=== PATIENT | male | born 2000 | race Caucasian/White ===

== ENCOUNTER 2019-11-19 18:37 | Observation (INO) | payer OTHER ==
[~2019-11-19] VITALS: Ht 177.8 cm; Wt 99.3 kg
[2019-11-19] MEDS ORDERED: IBUP200C25 PO (18:57)
[2019-11-19] MEDS ORDERED: NAPROXEN 250 MG TAB PO ONE (20:30)
[2019-11-19] MEDS ORDERED: LIDOCAINE 4% CREAM 5GM (LMX4) TOP ONE (20:30)
[2019-11-19 21:19] LABS: BASO # 0.1 10^3/uL (0.0-0.2); BASO % 0.8 % (0.0-1.0); EOS # 0.2 10^3/uL (0.0-0.5); EOS % 2.1 % (0.0-3.0); HEMATOCRIT 45.8 % (42.0-52.0); HEMOGLOBIN 15.4 g/dl (13.5-17.5); LYMPH # 3.4 10^3/uL (1.5-5.0); LYMPH % 32.1 % (24.0-44.0); MEAN CORPUSCULAR HEMOGLOBIN 28.2 pg (27.0-33.0); MEAN CORPUSCULAR HGB CONC 33.6 g/dl (32.0-36.5); MEAN CORPUSCULAR VOLUME 83.9 fl (80.0-96.0); MONO # 1.1 10^3/uL (0.0-0.8); MONO % 10.1 % (0.0-5.0); NEUTROPHILS # 5.8 10^3/uL (1.5-8.5); NEUTROPHILS % 54.6 % (36.0-66.0); PLATELET COUNT, AUTOMATED 292 10^3/uL (150-450); RED BLOOD COUNT 5.46 10^6/uL (4.30-6.10); WHITE BLOOD COUNT 10.5 10^3/uL (4.0-10.0)
[2019-11-19 21:25] LABS: APPEARANCE, URINE HAZY (CLEAR); BACTERIA, URINE AUTO NEGATIVE (NEGATIVE); BILIRUBIN, URINE AUTO NEGATIVE (NEGATIVE); BLOOD, URINE BLOOD NEGATIVE (NEGATIVE); COLOR, URINE YELLOW (YELLOW); GLUCOSE, URINE (UA) AUTO NEGATIVE (NEGATIVE); KETONE, URINE AUTO NEGATIVE (NEGATIVE); LEUKOCYTE ESTERASE, URINE AUTO NEGATIVE (NEGATIVE); MUCUS, URINE SMALL (NEGATIVE); NITRITE, URINE AUTO NEGATIVE (NEGATIVE); PROTEIN, URINE AUTO NEGATIVE (NEGATIVE); RBC, URINE AUTO 0 /HPF (0-3); SPECIFIC GRAVITY URINE AUTO 1.033 (1.002-1.035); SQUAMOUS EPITHELIAL CELL UR AU 0 /HPF (0-6); UROBILINOGEN, URINE AUTO 0.2 mg/dL (0.0-2.0); WBC, URINE AUTO 0 /HPF (0-3)
--- NOTE | 2019-11-19 21:29 | REPVR ---
PROCEDURE INFORMATION: Exam: US Duplex Right Lower Extremity Veins, Limited Exam date and time: 11/19/2019 9:23 PM Age: 18 years old Clinical indication: Pain; Swelling (edema) of limb; Lower extremity, right; Leg, lower; Additional info: Right calf pain, swelling TECHNIQUE: Imaging protocol: Real-time Duplex ultrasound of the Right Lower Extremity with 2-D patino scale, color Doppler flow and spectral waveform analysis with image documentation. Limited exam was focused on the right lower extremity veins. COMPARISON: No relevant prior studies available. FINDINGS: Right deep veins: Unremarkable. The common femoral, femoral, proximal profunda femoral and popliteal veins are patent without thrombus. The posterior tibial trunk is normal and patent. Normal Doppler waveforms. Normal compressibility and/or augmentation response. Right superficial veins: Unremarkable. Saphenofemoral junction is patent without thrombus. Soft tissues: Unremarkable. IMPRESSION: Negative right lower extremity venous duplex exam without evidence of deep venous thrombosis. Electronically signed by: Madi Bran On 11/19/2019 21:28:56 PM
[2019-11-19 22:08] LABS: CPK CREATINE PHOSPHOKINASE 3325 U/L (39-308)
[2019-11-19] MEDS ORDERED: SODIUM CHLORIDE IV ONE (22:15)
[2019-11-19] MEDS ORDERED: ACETAMINOPHEN TAB 650MG DOSE (2X325MG) PO PRN (23:30)
[2019-11-19 23:44] LABS: BLOOD UREA NITROGEN 26 MG/DL (7-18); CALCIUM LEVEL 8.8 MG/DL (8.5-10.1); CARBON DIOXIDE LEVEL 26 MEQ/L (21-32); CHLORIDE LEVEL 104 MEQ/L (98-107); CREATININE FOR GFR 1.07 MG/DL (0.70-1.30); GLUCOSE, FASTING 87 MG/DL (70-100); POTASSIUM SERUM 3.9 MEQ/L (3.5-5.1); SODIUM LEVEL 138 MEQ/L (136-145)
[2019-11-20] MEDS: NS 1,000 ML IV SCH ×2 (00:15→04:18)
--- NOTE | 2019-11-20 02:20 | HPEPDOC ---
General Date of Admission November 19, 2019 at 23:17 Date of Service: November 19, 2019 Attending Physician: ELOISA HENLEY MD Chief Complaint The patient is a 18-year-old male admitted with a reason for visit of Rhabdomyolysis, Right Calf Pain. 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 In the ED he was hemodynamically stable, afebrile and reporting moderate to severe calf pain with flexion and extension of his right foot limited by pain and subjective swelling, but otherwise no erythema, hotness to touch or numbness. Work up was notable for WBC 10 BUN and Cr wnl with a CK of 3325 and RLE doppler venous US that was negative for DVT. He is now being admitted for further hydration of mild rhabdomyolysis and PT evalua tion as well as R.I.C.E and anti inflammatory therapy for his exercise induced right calf pain likely 2/2 cramping vs. strain vs. unlikely achilles tendonitis. Home Medications Scheduled PRN Ibuprofen (Ibuprofen) 200 Mg Capsule, 800 MG PO Q8H PRN for PAIN, (Reported) Allergies Coded Allergies: Penicillins (Verified Allergy, Unknown, unknown, 11/19/19) Past Medical History Medical History Smoker Surgical History None Family History Significant Family History: No pertinent family hx Social History * Smoker: current smoker Alcohol: Denies Drugs: denies Recent Travel/Sick Contacts: Denies: Recent travel, Recent sick contacts Psychosocial History: No pertinent psych hx Active member, Active smoker. A-FIB/CHADSVASC A-FIB History Current/History of A-Fib/PAF?: No Current PO Anticoag Therapy: No Age/Risk Factor Scoring CHADSVASC: CHADSVASC Response (Comments) Value Age Risk Factor Age < 65 years old 0 Gender Risk Factor Male 0 Hx of CHF No 0 Hx of HTN No 0 Hx of Stroke/TIA/or VTE No 0 Hx of Diabetes No 0 Hx of Vascular Disease No 0 Total 0 Treatment Treatment ordered: NONE Reason Anticoagulant not given: Not indicated/[id number] Review of Systems Constitutional: Denies: Chills, Fever, Night Sweats Eyes: Denies: Pain, Vision change ENT: Denies: Head Aches, Ear Pain, Dysphagia Skin: Denies: Rash, Lesions, Breakdown Pulmonary: Denies: Dyspnea, Cough Cardiovascular: Denies: Chest Pain, Palpitations, Orthopnea, Paroxysmal Noc. Dyspnea, Lt Headedness Gastrointestinal: Denies: Nausea, Vomiting, Abdominal Pain, Diarrhea Genitourinary: Denies: Dysuria, Frequency, Incontinence, Retention Hematologic: Denies: Bruising, Bleeding Excessively Endocrine: Denies: Polydipsia, Polyphagia, Polyuria, Heat Intolerance, Cold Intolerance, Other Endocrine Sx Musculoskeletal: Reports: Leg Pain (R calf pain with foot range of motion limited by calf tenderness), Spasms (R calf spasms); Denies: Foot Pain Neurological: Denies: Weakness, Numbness, Change in speech, Confusion Psych: Reports: Mood Normal; Denies: Depression, Memory Issues Physical Examination General Exam: Positive: Alert, No Acute Distress Eye Exam: Positive: PERRLA, Conjunctiva & lids normal, EOMI; Negative: Sclera icteric ENT Exam: Positive: Atraumatic, Mucous membr. moist/pink, Pharynx Normal Neck Exam: Positive: Supple; Negative: JVD, thyromegaly Chest Exam: Positive: Clear to auscultation, Normal air movement Abdomen Exam: Positive: Normal bowel sounds, Soft; Negative: Tenderness, Hepatospenomegaly Extremity Exam: Positive: Normal pulses, Tenderness (RLE with mild tenderness with calf palpation without erythema, no noted swelling, good DP pulses, WWP); Negative: Clubbing, Cyanosis, Edema, Swelling Skin Exam: Positive: Nl turgor and temperature; Negative: Breakdown, Lesion Neuro Exam: Positive: Normal Gait, Normal Speech, Strength at 5/5 X4 ext (FROM in both LE, RLE exam with pain with flexion and extension of foot but much improved from prior), Cranial Nerves 3-12 NL Psych Exam: Positive: Mental status NL, Mood NL, Oriented x 3 Vital Signs Vital Signs Date Time Temp Pulse Resp B/P (MAP) Pulse Ox O2 Delivery O2 Flow Rate FiO2 11/19/19 19:07 11/19/19 18:37 99.8 84 16 97 Room Air Laboratory Data Labs 24H Laboratory Tests 2 11/19/19 20:57: Immature Granulocyte % (Auto) 0.3, Neutrophils (%) (Auto) 54.6, Lymphocytes (%) (Auto) 32.1, Monocytes (%) (Auto) 10.1H, Eosinophils (%) (Auto) 2.1, Basophils (%) (Auto) 0.8, Neutrophils # (Auto) 5.8, Lymphocytes # (Auto) 3.4, Monocytes # (Auto) 1.1H, Eosinophils # (Auto) 0.2, Basophils # (Auto) 0.1, Nucleated Red Blood Cells % (auto) 0.0, Total Creatine Kinase 3325H 11/19/19 21:05: Urine Color YELLOW, Urine Appearance HAZY, Urine pH 5.0, Urine Specific [place] 1.033, Urine Protein NEGATIVE, Urine Glucose (Auto)(UA) NEGATIVE, Urine Ketones (Auto) NEGATIVE, Urine Blood NEGATIVE, Urine Nitrite NEGATIVE, Urine Bilirubin NEGATIVE, Urine Urobilinogen 0.2, Urine Leukocyte Esterase (Auto) NEGATIVE, Urine WBC (Auto) 0, Urine RBC (Auto) 0, Urine Hyaline Casts (Auto) 0, Urine Bacteria (Auto) NEGATIVE, Urine Squamous Epithelial Cells 0, Urine Mucus (Auto) SMALL, Urine Sperm (Auto) CBC/BMP Laboratory Tests 11/19/19 20:57 Assessment/Plan 18 yo man who is active who is being admitted for mild rhabdomyolysis and PT evaluation as well as R.I.C.E and anti inflammatory therapy for his exercise induced right calf pain likely 2/2 cramping vs. strain vs. unlikely achilles tendonitis. RLE calf pain: -R.I.C.E -hydration with 200cc/hr NS -follow up BMP for official Cr to continue NSAID therapy, for now will add PRN tylenol -PT/OT evaluation -s/p RLE venous doppler US, negative for DVT Mild rhabdo without CHAUNCEY: -s/p 1L NS in the ED, continue 200cc/hr NS DVT ppx: heparin [id number] Dispo: medsurg, obs, likely to be discharged within 48h Plan / VTE VTE Prophylaxis Ordered?: Yes ELOISA HENLEY MD November 19, 2019 23:37
[2019-11-20 03:30] VITALS: BP 108/49
[2019-11-20 06:00] VITALS: BP 120/97
[2019-11-20] MEDS ORDERED: HEPARIN SOD (PORCINE) 5000UNITS/ML VIAL (J1644 PER 1000UNITS) SC SCH (06:00)
[2019-11-20 06:56] LABS: HEMATOCRIT 38.7 % (42.0-52.0); MEAN CORPUSCULAR HEMOGLOBIN 29.1 pg (27.0-33.0); MEAN CORPUSCULAR HGB CONC 34.1 g/dl (32.0-36.5); MEAN CORPUSCULAR VOLUME 85.2 fl (80.0-96.0); PLATELET COUNT, AUTOMATED 242 10^3/uL (150-450); RED BLOOD COUNT 4.54 10^6/uL (4.30-6.10); WHITE BLOOD COUNT 6.7 10^3/uL (4.0-10.0)
[2019-11-20 07:00] LABS: HEMOGLOBIN 13.2 g/dl (13.5-17.5)
[2019-11-20 07:16] LABS: BLOOD UREA NITROGEN 20 MG/DL (7-18); CALCIUM LEVEL 7.7 MG/DL (8.5-10.1); CARBON DIOXIDE LEVEL 27 MEQ/L (21-32); CHLORIDE LEVEL 112 MEQ/L (98-107); CREATININE FOR GFR 0.91 MG/DL (0.70-1.30); GLUCOSE, FASTING 97 MG/DL (70-100); MAGNESIUM LEVEL 1.9 MG/DL (1.4-2.0); POTASSIUM SERUM 4.1 MEQ/L (3.5-5.1); SODIUM LEVEL 142 MEQ/L (136-145)
--- NOTE | 2019-11-20 10:10 | DS.PDOC ---
Discharge Summary General Date of Admission November 19, 2019 at 23:17 Date of Discharge 11/20/19 Discharge Summary PROCEDURES PERFORMED DURING STAY: None. ADMITTING DIAGNOSES: 1. Rhabdomyolysis without CHAUNCEY. DISCHARGE DIAGNOSES: 1. Rhabdomyolysis without CHAUNCEY, right calf pain COMPLICATIONS/CHIEF COMPLAINT: Rhabdomyolysis, Right Calf Pain. HISTORY OF PRESENT ILLNESS/HOSPITAL COURSE: Patient is a 18-year-old male with a BMI of 31.4, presenting with right calf pain secondary to rhabdomyolysis, due to vigorous exercise. Ultrasound Doppler is negative for DVTs. During hospitalization, uneventful. Pain was controlled with NSAIDs, creatinine stable, no AK I, and was given IV fluids. PT eval, no recommendations for rehabilitation at this time. Encourage electrolyte fluid intake, we'll administer additional bolus of 1L NS prior to DC. Follow-up with PCP in 1 week. All questions were answered. DISCHARGE MEDICATIONS: Please see below. ALLERGIES: Please see below. PHYSICAL EXAMINATION ON DISCHARGE: PHYSICAL EXAMINATION: VITAL SIGNS: Please see below. GENERAL: No distress HEENT: Normocephalic, atraumatic, moist mucous membranes NECK: Supple CARDIOVASCULAR EXAMINATION: S1, S2 RESPIRATORY EXAMINATION: CTAB ABDOMINAL EXAMINATION: Soft, nontender, nondistended, positive bowel sounds EXTREMITIES: no edema, right calf tenderness SKIN: No rash NEUROLOGICAL EXAMINATION: Alert and oriented 3, no focal deficits PSYCHIATRIC EXAMINATION: Calm and cooperative, appropriate affect DISCHARGE CONDITION: Stable. TIME SPENT ON DISCHARGE: 32 minutes Vital Signs/I&Os Vital Signs Date Time Temp Pulse Resp B/P (MAP) Pulse Ox O2 Delivery O2 Flow Rate FiO2 11/20/19 06:00 98.2 73 17 120/97 (105) 96 Room Air I&O- Last 24 Hours up to 6 AM 11/20/19 06:00 Intake Total 2810 ml Output Total 300 ml Balance 2510 ml Laboratory Data Labs 24H Laboratory Tests 2 11/19/19 20:57: Immature Granulocyte % (Auto) 0.3, Neutrophils (%) (Auto) 54.6, Lymphocytes (%) (Auto) 32.1, Monocytes (%) (Auto) 10.1H, Eosinophils (%) (Auto) 2.1, Basophils (%) (Auto) 0.8, Neutrophils # (Auto) 5.8, Lymphocytes # (Auto) 3.4, Monocytes # (Auto) 1.1H, Eosinophils # (Auto) 0.2, Basophils # (Auto) 0.1, Nucleated Red Blood Cells % (auto) 0.0, Anion Gap 8, Calcium Level 8.8, Total Creatine Kinase 3325H 11/19/19 21:05: Urine Color YELLOW, Urine Appearance HAZY, Urine pH 5.0, Urine Specific [place] 1.033, Urine Protein NEGATIVE, Urine Glucose (Auto)(UA) NEGATIVE, Urine Ketones (Auto) NEGATIVE, Urine Blood NEGATIVE, Urine Nitrite NEGATIVE, Urine Bilirubin NEGATIVE, Urine Urobilinogen 0.2, Urine Leukocyte Esterase (Auto) NEGATIVE, Urine WBC (Auto) 0, Urine RBC (Auto) 0, Urine Hyaline Casts (Auto) 0, Urine Bacteria (Auto) NEGATIVE, Urine Squamous Epithelial Cells 0, Urine Mucus (Auto) SMALL, Urine Sperm (Auto) 11/20/19 06:38: Nucleated Red Blood Cells % (auto) 0.0, Anion Gap 3L, Calcium Level 7.7L, Magnesium Level 1.9 CBC/BMP Laboratory Tests 11/19/19 20:57 11/20/19 06:38 Discharge Medications Scheduled PRN Ibuprofen (Ibuprofen) 200 Mg Capsule, 800 MG PO Q8H PRN for PAIN, (Reported) Allergies Coded Allergies: Penicillins (Verified Allergy, Unknown, unknown, 11/19/19) JERMAINE LYLE MD November 20, 2019 10:10
[2019-11-20] MEDS ORDERED: SODIUM CHLORIDE 0.9% 1000ML IV ONE (10:15)
== END 2019-11-20 11:50 | disposition home or self-care (01) ==
LOC: M ED 18:37 → M ED INP 23:17 → ENRESERV 11-20 02:21 → M MS5PR 11-20 03:31
PROVIDERS: ADMIT Internal Medicine; ATTEND Family Medicine
DX: M62.82 Rhabdomyolysis (principal); M79.661 Pain in right lower leg; Z88.0 Allergy status to penicillin; F17.218 Nicotine dependence, cigarettes, with other nicotine-induced disorders
CPT/HCPCS: 36415; 80047; 80048; 81001; 82550; 83735; 85025; 85027; 93971; 96361; 96372; 96374; 97161; 99284; J1644

== ENCOUNTER 2019-12-24 19:20 | Emergency (ER) | payer OTHER ==
[~2019-12-24] VITALS: Ht 177.8 cm; Wt 103.4 kg
[~2019-12-24 19:20] MED LIST: IBUP200C25 PO
[2019-12-24 20:23] LABS: BASO # 0.1 10^3/uL (0.0-0.2); EOS # 0.3 10^3/uL (0.0-0.5); EOS % 3.1 % (0.0-3.0); HEMATOCRIT 43.9 % (42.0-52.0); HEMOGLOBIN 14.7 g/dl (13.5-17.5); LYMPH # 2.9 10^3/uL (1.5-5.0); LYMPH % 32.4 % (24.0-44.0); MEAN CORPUSCULAR HEMOGLOBIN 28.3 pg (27.0-33.0); MEAN CORPUSCULAR HGB CONC 33.5 g/dl (32.0-36.5); MEAN CORPUSCULAR VOLUME 84.6 fl (80.0-96.0); MONO # 0.8 10^3/uL (0.0-0.8); MONO % 9.2 % (0.0-5.0); NEUTROPHILS # 4.8 10^3/uL (1.5-8.5); NEUTROPHILS % 53.9 % (36.0-66.0); PLATELET COUNT, AUTOMATED 263 10^3/uL (150-450); RED BLOOD COUNT 5.19 10^6/uL (4.30-6.10); WHITE BLOOD COUNT 8.9 10^3/uL (4.0-10.0)
[2019-12-24] MEDS ORDERED: NS 1,000 ML IV ONE (20:30)
[2019-12-24 20:44] LABS: ALBUMIN 3.9 GM/DL (3.2-5.2); ALT/SGPT 62 U/L (12-78); BILIRUBIN,DIRECT 0.2 MG/DL (0.0-0.2); BILIRUBIN,TOTAL 0.6 MG/DL (0.2-1.0); BLOOD UREA NITROGEN 17 MG/DL (7-18); CALCIUM LEVEL 8.1 MG/DL (8.5-10.1); CARBON DIOXIDE LEVEL 27 MEQ/L (21-32); CHLORIDE LEVEL 106 MEQ/L (98-107); CK-MB VALUE MASS 1.1 NG/ML (<3.6); CPK CREATINE PHOSPHOKINASE 364 U/L (39-308); CREATININE FOR GFR 1.04 MG/DL (0.70-1.30); GLUCOSE, FASTING 96 MG/DL (70-100); LIPASE 75 U/L (73-393); POTASSIUM SERUM 3.9 MEQ/L (3.5-5.1); SODIUM LEVEL 140 MEQ/L (136-145); TOTAL PROTEIN 7.1 GM/DL (6.4-8.2)
[2019-12-24 21:36] VITALS: BP 143/59
== END 2019-12-24 21:38 | disposition home or self-care (01) ==
LOC: M ED 19:20
DX: M62.82 Rhabdomyolysis (principal); F17.290 Nicotine dependence, other tobacco product, uncomplicated; Z88.0 Allergy status to penicillin